=== PATIENT | male | born 1995 | race Two or more races ===

== ENCOUNTER 2019-01-04 17:49 | Emergency (ER) | payer SELFPAY ==
[~2019-01-04] VITALS: Ht 175.3 cm; Wt 81.6 kg
[2019-01-04 18:20] VITALS: BP 151/67
[2019-01-04] MEDS ORDERED: NAPROXEN 500 MG TABLET PO STA (18:26)
[2019-01-04] MEDS ORDERED: NAPR-514 PO (19:54)
--- NOTE | 2019-01-04 19:54 | PHYS DOC ---
Past Medical History Past Medical History: No Pertinent History Past Surgical History: No Surgical History Alcohol Use: None Drug Use: None Adult General Chief Complaint Chief Complaint: RIB PAIN HPI HPI Patient is a 23 year old male, accompanied by his friends, who presents to the ER with complaints of right lateral lower rib pain for the last 4 days. Patient denies any new injury, states he was hit hard in his right side 2 weeks ago when playing soccer. Patient denies any hemoptysis, cough, wheezing, or stridor. Patient states at times he feels like he cannot take a deep breath. Currently he rates his pain a 7 out of 10 on the pain scale, there are no alleviating thirst, the pain increases with inspiration and palpation only. Review of Systems Review of Systems Constitutional: Denies fever or chills [] Eyes: Denies redness, or eye pain [] HENT: Denies nasal congestion or sore throat [] Respiratory: Denies cough; see history of present illness Cardiovascular: No additional information not addressed in HPI [] GI: Denies abdominal pain, nausea, vomiting, or diarrhea [] : Denies dysuria or hematuria [] Musculoskeletal: See history of present illness Integument: Denies rash or skin lesions [] Neurologic: Denies headache Complete systems were reviewed and found to be within normal limits, except as documented in this note. Current Medications Current Medications Current Medications Medications (Trade) Dose Ordered Sig/Freddie Start Time Stop Time Status Last Admin Dose Admin Naproxen (Naprosyn) 500 mg 1X STAT 01/04/19 18:26 01/04/19 18:29 DC 01/04/19 18:37 500 MG Allergies Allergies Allergies Coded Allergies Type Severity Reaction Last Updated Verified No Known Drug Allergies 01/04/19 No Physical Exam Physical Exam Constitutional: Well developed, well nourished, no acute distress, non-toxic appearance. [] HENT: Normocephalic, atraumatic, bilateral external ears normal, , nose normal. [] Eyes: PERRLA, EOMI, conjunctiva normal, no discharge. [] Neck: Normal range of motion, no stridor. [] Cardiovascular:Heart rate regular rhythm, no murmur [] Lungs & Thorax: Bilateral breath sounds clear to auscultation; right lateral lower rib tenderness to palpation, no crepitus, no obvious deformity[] Skin: Warm, dry, no erythema, no rash. No bruising. [] Back: No tenderness, no CVA tenderness. [] Extremities: No cyanosis, no clubbing, ROM intact, no edema. [] Neurologic: Alert and oriented X 3, no focal deficits noted. [] Psychologic: Affect normal, judgement normal, mood normal. [] Current Patient Data Vital Signs Vital Signs Date Time Temp Pulse Resp B/P (MAP) Pulse Ox O2 Delivery O2 Flow Rate FiO2 01/04/19 18:20 97.0 63 16 151/67 (95) 97 Room Air 97.0 EKG EKG [] Radiology/Procedures Radiology/Procedures R rib x-ray negative for acute fx read by Dr. Calero[] Course & Med Decision Making Course & Med Decision Making Pertinent Labs and Imaging studies reviewed. (See chart for details) [] Dragon Disclaimer Dragon Disclaimer This electronic medical record was generated, in whole or in part, using a voice recognition dictation system. Departure Departure Impression: Primary Impression: Contusion of rib on right side Disposition: HOME, SELF-CARE Condition: STABLE Referrals: NO PCP (PCP) Patient Instructions: Rib Contusion Additional Instructions: Fill the prescription and use it as directed. Be sure to take 2 deep breaths and cough splinting your side with a pillow every hour while awake while the pain persists. Follow up with your primary care doctor in 1-2 days for reevaluation, Return to the ER if symptoms worsen. Scripts Naproxen (NAPROXEN) 500 Mg Tablet 1 TAB PO BID PRN for PAIN for 10 Days, #20 TAB 0 Refills Prov: CHACE [employer]AL [employer] 01/04/19 Problem Qualifiers Primary Impression: Contusion of rib on right side Encounter type: initial encounter Qualified Codes: S20.211A - Contusion of right front wall of thorax, initial encounter CHACE [employer] Jan 04, 2019 19:54
--- NOTE | 2019-01-04 23:04 | RAD ---
Indication: Right hip pain after soccer injury 4 days ago TECHNIQUE: PA chest and multiple views of the right ribs COMPARISON: None FINDINGS: Heart is normal in size. Lungs are clear. No pneumothorax or pleural effusion. No acute fractures. IMPRESSION: No acute findings. Electronically signed by: Prabhu Faulkner DO (01/04/2019 11:01 PM) [id number]
== END 2019-01-04 20:01 | disposition home or self-care (01) ==
LOC: ER 17:49
DX: S20.211A Contusion of right front wall of thorax, initial encounter (principal); W22.8XXA Striking against or struck by other objects, initial encounter; Y93.66 Activity, soccer; Y92.89 Other specified places as the place of occurrence of the external cause; Y99.8 Other external cause status
CPT/HCPCS: 71101; 99284